=== PATIENT | female | born 1990 | race Caucasian/White ===

== ENCOUNTER 2017-07-03 16:06 | Emergency (ER) | payer MEDICAID ==
[~2017-07-03] VITALS: Ht 162.6 cm; Wt 81.0 kg
[~2017-07-03 16:06] MED LIST: IBUP600 PO; PERI8.6T PO; PREN0.01 PO
[2017-07-03 16:09] VITALS: BP 136/88; PULSE 81; RESP 16; TEMP 98.2; O2SAT 98
[2017-07-03] MEDS ORDERED: PERI0.126 SWISH-SPIT (16:23)
[2017-07-03] MEDS ORDERED: IBUP-232 PO (16:23)
[2017-07-03] MEDS ORDERED: PENI500T PO (16:23)
[2017-07-03] MEDS ORDERED: NORC5TAB PO (16:23)
--- NOTE | 2017-07-03 16:23 | PD ---
HPI Chief Complaint: Oral / Dental Pain or Problem Time Seen by Provider: 16:13 Travel History International Travel<30 days: No Contact w/Intl Traveler<30days: No Traveled to known affect area: No History of Present Illness HPI The patient is a 26-year-old female who presents emergency department for dental pain. The patient states she has an impacted right posterior wisdom tooth which is pushing on the tooth in front. The patient states she now has a crack in the tooth, was evaluated by a dentist advised that she would need wisdom tooth extraction and then a root canal and possible crown to the posterior right molar, just in front of the wisdom tooth. The pain radiates up to the right ear down the anterior aspect of the right jaw. The tooth is sensitive mastication, heat, and cold. Symptoms are mild to moderate, possibly exacerbated by underlying cavity with nerve exposure, and not alleviated with ibuprofen 800 mg at home. Patient states she recently obtain Medicaid insurance and has to wait until Thursday to follow-up with a dentist. PFSH Past Medical History Diminished Hearing: No ?: Not Past Surgical History Tonsillectomy: Yes Social History Alcohol Use: No Tobacco Use: No Substance Use: No Allergies-Medications (Allergen,Severity, Reaction): Coded Allergies: No Known Allergies (Unverified Adverse Reaction, Unknown, 07/03/17) Reported Meds & Prescriptions Reported Meds & Active Scripts Active Gwen-Colace 8.6-50 mg (Sennosides-Docusate Sodium) 1 Tab Tab 2 Tab PO Q12H PRN 30 Days Motrin 600 Mg Tab (Ibuprofen) 600 Mg Tab 600 Mg PO Q6H PRN 30 Days Vit ( Plus) (Prenat Multivit/Music Historian/Iron/Folic Ac) Tab 1 Tab PO DAILY Review of Systems General / Constitutional: No: Fever HENT: Positive: Dental Difficulties, Earache Gastrointestinal: No: Nausea, Vomiting Skin: No Rash Physical Exam Narrative GENERAL: Awake, alert, 26-year-old female who appears her stated age and is in no acute respiratory distress. SKIN: Focused skin assessment warm/dry. HEAD: Atraumatic. Normocephalic. EYES: Pupils equal and round. No scleral icterus. No injection or drainage. ENT: No nasal bleeding or discharge. TMs are translucent and EACs are clear bilaterally. Inspection the oropharynx reveals the right posterior inferior molar, tooth #32, is leaning forward. The tooth in front of the wisdom tooth, tooth #31, is tender to palpation. No significant gingival swelling or palpable abscesses noted. NECK: Trachea midline. No JVD. MUSCULOSKELETAL: No obvious deformities. No clubbing. No cyanosis. No edema. NEUROLOGICAL: Awake and alert. No obvious cranial nerve deficits. Motor grossly within normal limits. Normal speech. PSYCHIATRIC: Appropriate mood and affect; insight and judgment normal. Data Data Last Documented VS Vital Signs Date Time Temp Pulse Resp B/P (MAP) Pulse Ox O2 Delivery O2 Flow Rate FiO2 07/03/17 16:09 98.2 81 16 136/88 (104) 98 MDM Medical Decision Making Medical Screen Exam Complete: Yes Emergency Medical Condition: Yes Medical Record Reviewed: Yes Differential Diagnosis Differential diagnosis includes odontalgia, dental caries, pericoronitis, exposed nerve, dental fracture. Narrative Course The patient most likely has an exposed nerve, possibly secondary to dental cavity. She is advised to follow-up with a dentist for definitive treatment. She will be placed on Pen-Vee K, is advised to start the Peridex after the Pen- Vee K as finished. She will be prescribed ibuprofen and [place] for pain but is advised to follow-up with a dentist once again for definitive care. Diagnosis Primary Impression: Odontalgia Patient Instructions: General Instructions Additional Instructions: Medications as directed. Follow-up with a dentist. Diet as tolerated. Med/Other Pt SpecificInfo: Prescription(s) given Scripts Chlorhexidine Gluconate (Mouth) Liq (Peridex Liq) 0.12% Soln 15 ML SWISH-SPIT BID, #473 ML 0 Refills Prov: Yosef Gandhi MD 07/03/17 Ibuprofen (Ibuprofen) 600 Mg Tab 600 MG PO Q6H Y for Pain/Inflammation, #20 TAB 0 Refills Prov: Yosef Gandhi MD 07/03/17 Penicillin V Potassium (Penicillin V Potassium) 500 Mg Tab 500 MG PO Q6H for Infection for 10 Days, #40 TAB 0 Refills Prov: Yosef Gandhi MD 07/03/17 Hydrocodone-Acetaminophen ([place]) 5 Mg-325 Mg Tab 1 TAB PO Q6H Y for PAIN, #15 TAB 0 Refills Prov: Yosef Gandhi MD 07/03/17 Disposition: 01 DISCHARGE HOME Condition: Stable Yosef Gandhi MD Jul 03, 2017 16:23
== END 2017-07-03 16:39 | disposition home or self-care (01) ==
LOC: PHEFT 16:06
DX: K08.89 Other specified disorders of teeth and supporting structures (principal)
CPT/HCPCS: 99284